=== PATIENT | female | born 2000 | race Two or more races ===

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

== ENCOUNTER 2023-05-31 08:08 | Outpatient (REF) | payer OTHER, SELFPAY ==
[2023-05-31 08:17] LABS: MANUAL DIFF FLAG NO
[2023-05-31 08:54] LABS: Basophils Percent Auto 0.4 % (0-2); Eosinophils Absolute Auto 0.3 X10*3/uL (0.0-0.4); Eosinophils Percent Auto 2.3 % (0-4); Hematocrit 39.3 % (37.0-47.0); Hemoglobin 12.1 g/dl (12.0-16.0); Imm Gran Abs Auto 0.05 X10*3/uL (0.00-0.03); Imm Gran Pct Auto 0.5 % (0.0-0.4); Lymphocytes Absolute Auto 4.4 X10*3/uL (1.2-4.9); Lymphocytes Percent Auto 39.4 % (20-40); Mean Corpuscular HGB Conc 30.8 g/dl (31.0-35.0); Mean Corpuscular Hemoglobin 23.8 pg (27.0-33.0); Mean Corpuscular Volume 77.4 fL (80.0-98.0); Mean Platelet Volume 9.2 fL (9.4-12.3); Monocytes Absolute Auto 0.7 X10*3/uL (0.1-1.2); Monocytes Percent Auto 6.4 % (2-11); Neutrophils Absolute Auto 5.7 x10*3/uL (2.0-8.3); Platelet Count 307 X10*3/uL (160-400); Red Blood Count 5.08 X10*6/uL (4.20-5.50); Red Cell Distribution Width 14.1 % (11.0-16.0); White Blood Count 11.1 X10*3/uL (4.8-10.8)
[2023-05-31 10:20] LABS: Alanine Aminotransferase 18 U/L (0-31); Albumin Level 4.1 g/dL (3.5-5.0); Alkaline Phosphatase 93 U/L (39-117); Anion Gap 11 (12-20); Aspartate Amino Transferase 14 U/L (5-31); Bilirubin Total 0.4 mg/dL (0.0-1.0); Blood Urea Nitrogen 10 mg/dL (9-16); Calcium 9.5 mg/dL (8.4-10.2); Carbon Dioxide 28 mmol/L (22-29); Chloride 106 mmol/L (96-108); Cholesterol 136 mg/dL; Estimated Glomerular Filt Rate > 60; Glucose Fasting 89 mg/dL (60-99); HDL Cholesterol 34 mg/dL; LDL Cholesterol Calculated 83 mg/dl; Potassium 3.8 mmol/L (3.3-5.1); Sodium 141 mmol/L (135-145); Total Protein 7.5 g/dL (6.5-8.0); Triglycerides 98 mg/dL
== END 2023-05-31 08:09 | disposition home or self-care (01) ==
LOC: HO.LAB 08:08
PROVIDERS: PCP Internal Medicine; Visit Provider Internal Medicine
DX: Z00.00 Encounter for general adult medical examination without abnormal findings (principal); L98.9 Disorder of the skin and subcutaneous tissue, unspecified
CPT/HCPCS: 36415; 80053; 80061; 85025

== ENCOUNTER 2023-06-11 15:09 | Outpatient (AMB) | payer OTHER, SELFPAY ==
--- NOTE | 2023-06-11 15:11 | A.OFFVIS_ITS ---
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 The patient is requesting STD screen No previous Pap smear done [facility] Medical History Acute allergic rhinitis Family history of hypertension FRED (generalized anxiety disorder) Minimal recurrent major depressive disorder Obese Skin lesion of breast Surgical History History of tonsillectomy Family History Father Dyslipidemia Mother No problems noted. Social History Housing: Apartment Alcohol intake: current Alcohol intake frequency: a few times a month Alcohol type: beer Patient Tobacco Use Status: Former Tobacco user Tobacco use type: Cigarette e-Cigarette/Vaping Use: Never Used Second Hand Smoke Exposure: No service: No Current occupational status: employed Current occupation: [employer] Sexual orientation: Straight/Heterosexual Gender identity: Female Cognitive needs: No Hearing needs: No Vision needs: No Female Reproductive History Menstrual Age of Menarche: 13 Duration of menses: 6-7 days Date of last menstrual period: 05/29/23 control method: progestin IUCD and condoms Total pregnancies: 0 Review of Systems Const All systems reviewed & are unremarkable except as noted in HPI and below Card Reports as per HPI Resp Reports as per HPI GI Reports as per HPI and Reports no additional complaints Reports as per HPI Physical Exam Const General: cooperative, healthy appearing and comfortable Chest Chest palpation & inspection: normal inspection of the chest and normal palpation of entire chest wall Breast/axilla inspection: normal inspection of the breasts and normal inspection of the axillae Breast/axilla palpation: normal palpation of the breasts, normal palpation of the axillae and no axillary lymphadenopathy Resp Effort & Inspection: normal respiratory effort Auscultation: clear to auscultation bilaterally Percussion: percussion normal Cardio Palpation: normal PMI Rate: regular rate Rhythm: regular rhythm Heart sounds: no murmurs and no rubs Peripheral pulses: Peripheral pulses 2+ throughout GI Inspection: Yes normal to inspection Palpation (GI): Soft to palpation, nontender, no guarding, not rigid and No hepatosplenomegaly present Percussion: Yes normal to percussion Auscultation: normal bowel sounds Rectal Exam - Female: deferred General: Yes bladder normal to palpation External Female Exam: No lesion Speculum Exam - Vagina: normal appearance of the vagina, normal palpation, normal vaginal discharge and not erythematous Speculum Exam - Cervix: normal appearance of the cervix and normal palpation Bimanual exam- vagina & uterus: normal bimanual exam, normal palpation, uterine size normal, bladder normal to palpation, consistency normal and normal palpation Bimanual Exam- Adnexa, other: normal adnexae, no masses and no tenderness Assessment & Plan Assessment & Plan (1) Well woman exam: Code(s): Z01.419 - Encounter for gynecological examination (general) (routine) without abnormal findings Plan: Pap smear done. Counseled the patient about the recommended dietary allowance of 1000 mg of Calcium & 600 IU of vitamin D. The patient was instructed to perform monthly self-breast exams and to schedule an annual exam in a year; All questions answered and the patient verbalized understanding. Instructed the patient to schedule annual exam in a year (2) Screen for STD (sexually transmitted disease): Code(s): Z11.3 - Encounter for screening for infections with a predominantly sexual mode of transmission Plan: STD screening tests done includes: BV panel for trichomonas, GC/CT will send patient for serology std screening for HIV, RPR, Hep b s Ag, HepC Ab. Instructions given the patient to schedule a follow-up appointment for repeat serology screen in 6 months for possible false negatives. (3) Vulvovaginitis: Code(s): N76.0 - Acute vaginitis Plan: GC/CT, Bacterial Vaginosis panel taken, Terazol 0.8% q.h.s. for 3 days with metronidazole 500 mg p.o. b.i.d. for 7 days was sent to the patient's pharmacy. Instructions given the patient to have unprotected intercourse for a week and to call if symptoms don't improve in 48 hours. Orders: Orders Hepatitis B Surface Antigen Today Z20.2 - Contact with and (suspected) exposure to infections with a predominantly sexual mode of transmission Hepatitis C Antibody Today Z20.2 - Contact with and (suspected) exposure to infections with a predominantly sexual mode of transmission HIV Ab/Ag Today Z20.2 - Contact with and (suspected) exposure to infections with a predominantly sexual mode of transmission Syphilis Screen Today Z20.2 - Contact with and (suspected) exposure to infections with a predominantly sexual mode of transmission Medications: New metronidazole 500 mg PO BID 14 tabs 0RF 7 days terconazole 0.8% 1 appful vaginal BEDTIME 20 grams 0RF 3 days Coding Level of Care Code Est Pt Prev Care 18-39y([id number]) Diagnoses Well woman exam Z01.419 Screen for STD (sexually transmitted disease) Z11.3 Vulvovaginitis N76.0
[2023-06-11 15:15] VITALS: BP 120/74; BMI 29.2
== END 2023-06-11 15:33 | disposition home or self-care (01) ==
LOC: HO.HWS 15:09
PROVIDERS: PCP Internal Medicine; Visit Provider Obstetrics & Gynecology
DX: Z01.419 Encounter for gynecological examination (general) (routine) without abnormal findings (principal); Z11.3 Encounter for screening for infections with a predominantly sexual mode of transmission; N76.0 Acute vaginitis
CPT/HCPCS: 99395

== ENCOUNTER 2023-06-11 15:09 | Outpatient (REF) | payer OTHER, SELFPAY ==
[2023-06-13 03:06] LABS: CT PCR NOT DETECTED (Not Detect.); NG PCR NOT DETECTED (Not Detect.)
[2023-06-13 09:36] LABS: BV Int Neg Control Negative (Negative); BV Int Pos Control Positive (Positive)
== END 2023-06-11 15:10 | disposition home or self-care (01) ==
LOC: HO.LNP 15:09
PROVIDERS: PCP Internal Medicine; Visit Provider Obstetrics & Gynecology
DX: Z01.419 Encounter for gynecological examination (general) (routine) without abnormal findings (principal); N76.0 Acute vaginitis
CPT/HCPCS: 0353U; 87480; 87510; 87660; 88142

== ENCOUNTER 2023-12-02 08:07 | Outpatient (REF) | payer OTHER, SELFPAY ==
[2023-12-02 11:21] LABS: Appearance Urine Clear; Color Urine Yellow; Glucose Urine UA Negative (Negative); Leukocyte Esterase Urine Negative (Negative); Nitrite Urine Negative (Negative); Specific Gravity - Urine 1.025 (1.005-1.025); UMIC TRIGGER UACC YES; Urine Blood Trace (Negative); Urine Ketones Negative (Negative); Urine Protein Negative (Neg-Trace)
[2023-12-02 11:25] LABS: Bacteria Urine Trace (None Seen); Hyaline Casts Urine 0-2 /LPF (0-2); RBC Urine 0-2 /HPF (0-2); WBC Urine 0-5 /HPF (0-5)
== END 2023-12-02 08:08 | disposition home or self-care (01) ==
LOC: HO.LAB 08:07
PROVIDERS: PCP Internal Medicine; Visit Provider Internal Medicine
DX: R39.9 Unspecified symptoms and signs involving the genitourinary system (principal)
CPT/HCPCS: 81001

== ENCOUNTER 2024-02-10 14:57 | Outpatient (AMB) | payer OTHER, SELFPAY ==
--- NOTE | 2024-02-10 15:19 | MHC.OFFVIS ---
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 Luciano. She has a past medical history of anxiety, depression, allergic rhinitis, and obesity. She presents to the office today as a new patient for ongoing lower urinary tract symptoms. In discussion with the patient today she reports noting over the last 6 months to be experiencing urinary urgency, urinary frequency, and bladder pressure. She otherwise denies incontinence, nocturia, hematuria, dysuria, foul smelling urine, changes to urinary stream, flank pain, fever, and or chills. In office urinalysis results reviewed with the patient today. Microscopic hematuria noted otherwise within normal limits. When asked she denies any previous history of smoking and or known chemical exposure. Discussed at length potential causes for microscopic hematuria. Discussed at length potential causes for lower urinary tract symptoms she is experiencing. She otherwise offers no other issues or concerns at this time. [facility] Medical History FRED (generalized anxiety disorder) Minimal recurrent major depressive disorder Family history of hypertension Skin lesion of breast Acute allergic rhinitis Obese Surgical History History of tonsillectomy Family History Father Dyslipidemia Mother No problems noted. Social History Housing: Apartment Alcohol intake: current Alcohol intake frequency: a few times a month Alcohol type: beer Patient Tobacco Use Status: Former Tobacco user Tobacco use type: Cigarette e-Cigarette/Vaping Use: Never Used Second Hand Smoke Exposure: No service: No Current occupational status: employed Current occupation: [employer] Sexual orientation: Straight/Heterosexual Gender identity: Female Cognitive needs: No Hearing needs: No Vision needs: No Female Reproductive History Menstrual Age of Menarche: 13 Review of Systems Const All systems reviewed & are unremarkable except as noted in HPI and below Physical Exam Const General: cooperative, healthy appearing, comfortable, no acute distress, well developed, alert and awake Orientation/consciousness: patient oriented x3 Limitations: no limitations HEENT Head: Yes normal to inspection, Yes normocephalic and Yes atraumatic Ears: hearing grossly normal bilaterally Eyes General: appearance normal, both eyes and all related structures Neck Neck: Yes normal visual inspection and Yes trachea midline Chest Chest palpation & inspection: normal inspection of the chest Resp Effort & Inspection: normal respiratory effort and able to speak in complete sentences Cardio Rate: regular rate GI Inspection: Yes normal to inspection General: Yes no CVA tenderness Back/Spine/Pelvis Back: no CVA tenderness Skin General skin exam: no rashes or lesions noted Neuro General: patient oriented x3 Extrem General: Yes normal to inspection Psych Appearance: grossly normal and well kempt Mental Status: mental status grossly normal Speech and movement: Normal speech and movement present and Clear speech present Affect: normal affect Attitude: cooperative Thought process: Normal thought process present Thought content: Normal thought content present Insight: Fair insight present (Psych) Judgement: Fair judgement present (Psych) Results AMB Urinalysis, Automated UA Leukoctes 0 Theresa/uL Last Edit by Tiarra Sarmiento [facility] on 02/10/24 15:39 UA Nitrite Negative Last Edit by Tiarra Sarmiento CMA on 02/10/24 15:39 UA Urobilinogen 0.2 mg/dL Last Edit by Tiarra Sarmiento [facility] on 02/10/24 15:39 UA Protein 0 mg/dL Last Edit by Tiarra Sarmiento [facility] on 02/10/24 15:39 UA pH 6.0 Last Edit by Tiarra Sarmiento CMA on 02/10/24 15:39 UA Blood 10 Mark/uL Last Edit by Tiarra Sarmiento [facility] on 02/10/24 15:39 UA Specific [place] 1.030 Last Edit by Tiarra Sarmiento REFRIGERATION MECHANIC on 02/10/24 15:39 UA Ketone Positive Last Edit by Tiarra Sarmiento [facility] on 02/10/24 15:39 5 mg/dl Tiarrajose Sarmiento 02/10/24 15:39 UA Bilirubin 0 mg/dL Last Edit by Tiarra Sarmiento CMA on 02/10/24 15:39 UA Glucose 0 mg/dL Last Edit by Tiarra Sarmiento CMA on 02/10/24 15:39 Results Reviewed Results Reviewed: Laboratory Last Values Urine pH (Auto) 6.0 02/10/24 15:23 Specific [place] (Auto) 1.030 02/10/24 15:23 Urine Protein (Auto) 0 mg/dL 02/10/24 15:23 Glucose (UA)(Auto) 0 mg/dL 02/10/24 15:23 Urine Ketones (Auto) Positive 02/10/24 15:23 Urine Blood (Auto) 10 Mark/uL 02/10/24 15:23 Urine Nitrite (Auto) Negative 02/10/24 15:23 Urine Bilirubin (Auto) 0 mg/dL 02/10/24 15:23 Urine Urobilinogen (Auto) 0.2 mg/dL 02/10/24 15:23 Leukocyte Esterase (Auto) 0 Theresa/uL 02/10/24 15:23 Assessment & Plan Assessment & Plan (1) Microscopic hematuria: Code(s): R31.29 - Other microscopic hematuria (2) Urinary frequency: Code(s): R35.0 - Frequency of micturition (3) Urinary urgency: Code(s): R39.15 - Urgency of urination (4) Sensation of pressure in bladder area: Code(s): R39.89 - Other symptoms and signs involving the genitourinary system Plan In office urinalysis results reviewed with the patient today; as noted above; will send for urine cytology. Discussed obtaining retroperitoneal ultrasound for further assessment evaluation. Discussed bladder triggers/irritants. Discussed at length potential causes for lower urinary tract symptoms patient is experiencing. Discussed, educated, and stressed the importance of drinking plenty of water daily. Discussed pelvic floor therapy versus surveillance monitoring verses trial of medication to assist with lower urinary tract symptoms patient is experiencing; risks and benefits of these interventions were discussed at length. Discussed possible near future in office urodynamics and or cystoscopy for further assessment evaluation. Follow up in 4-8 weeks with imaging to be completed prior and PVR at next office visit; or sooner with any issues, concerns, and or questions. Orders: Orders AMB Urinalysis Automated Today R33.9 - Retention of urine, unspecified Urine Cytology Today R31.29 - Other microscopic hematuria US retroperitoneal comp Today R35.0 - Frequency of micturition, R39.15 - Urgency of urination, R39.89 - Other symptoms and signs involving the genitourinary system Medications: New tamsulosin 0.4 mg PO BEDTIME 30 caps 3RF 30 days N40.1 - Benign prostatic hyperplasia with lower urinary tract symptoms, R35.1 - Nocturia Patient Instructions: The patient had an opportunity to ask questions regarding the treatment plan. All questions were answered. Physical exam, labs, and imaging were discussed and reviewed in detail. As well as risks, benefits, and discussion of treatment choices. No major barriers to understanding were identified. The patient expressed understanding and agreement with the above treatment plan. The patient was made aware they should contact our office by phone for worsening of their current condition, the appearance of new symptoms, or with any questions or concerns. Compliance is encouraged with any medications and follow up testing that is ordered. It is a privilege to be allowed the opportunity to participate in? your urological care.? Again, if you have any questions or concerns If you have any questions or concerns please do not hesitate to contact me. The office is [phone]. This note is constructed using voice recognition software. While every effort has been made to ensure accuracy floral design teacher errors may have been included. Yours sincerely, YOUSIF Max Coding Level of Care Code New Pt Level 4 (50244) Diagnoses Microscopic hematuria R31.29 Urinary frequency R35.0 Urinary urgency R39.15 Sensation of pressure in bladder area R39.89
== END 2024-02-10 15:57 | disposition home or self-care (01) ==
PROVIDERS: PCP Internal Medicine; Visit Provider Nurse Practitioner Family
DX: R31.29 Other microscopic hematuria (principal); R35.0 Frequency of micturition; R39.15 Urgency of urination; R39.89 Other symptoms and signs involving the genitourinary system; R33.9 Retention of urine, unspecified
CPT/HCPCS: 99204

== ENCOUNTER 2024-02-10 14:57 | Outpatient (REF) | payer OTHER, SELFPAY ==
[2024-02-10 18:37] LABS: Urine Cytology See Pathology rpt
== END 2024-02-10 14:58 | disposition home or self-care (01) ==
LOC: HO.LAB 14:57
PROVIDERS: PCP Internal Medicine; Visit Provider Nurse Practitioner Family
DX: R31.29 Other microscopic hematuria (principal); R31.9 Hematuria, unspecified; R35.0 Frequency of micturition; R39.15 Urgency of urination; R39.89 Other symptoms and signs involving the genitourinary system; R33.9 Retention of urine, unspecified; R35.1 Nocturia
CPT/HCPCS: 81003; 88112; 99202

== ENCOUNTER 2024-04-29 10:07 | Outpatient (REF) | payer OTHER, SELFPAY ==
--- NOTE | ~2024-04-29 | US_ITS ---
EXAMINATION: US RETROPERITONEAL COMPLETE (RENAL) CLINICAL INFORMATION: Other symptoms and signs involving the genitourinary system. COMPARISON: None available. TECHNIQUE: Real-time imaging of the kidneys and bladder. FINDINGS: RIGHT KIDNEY: 11.0 x 3.6 x 5.3 cm (SAG x AP x TRV). The kidney is normal in size, contour, and echogenicity. Renal cortical thickness is normal. No calculi or focal parenchymal lesions. No hydronephrosis. LEFT KIDNEY: 11.4 x 5.0 x 5.4 cm (SAG x AP x TRV). The kidney is normal in size, contour, and echogenicity. Renal cortical thickness is normal. No calculi or focal parenchymal lesions. No hydronephrosis. BLADDER: Well distended and normal. Bilateral ureteral jets are demonstrated. Prevoid bladder volume is 480 mL. Postvoid bladder volume is 27 mL. US/US retroperitoneal comp IMPRESSION: Unremarkable examination.
== END 2024-04-29 10:08 | disposition home or self-care (01) ==
LOC: HO.US 10:07
PROVIDERS: PCP Internal Medicine; Visit Provider Nurse Practitioner Family
DX: R39.89 Other symptoms and signs involving the genitourinary system (principal); R39.15 Urgency of urination; R35.0 Frequency of micturition
CPT/HCPCS: 76770

== ENCOUNTER 2024-05-10 17:19 | Outpatient (AMB) | payer OTHER, SELFPAY ==
[2024-05-10 17:27] VITALS: BP 102/70; PULSE 87; O2SAT 98; BMI 28.7
--- NOTE | 2024-05-10 17:27 | MHC.PC.OV ---
Vital Signs 05/10/24 17:27 Height 5 ft 4 in Weight 167 lb BMI 28.7 BP 102/70 Blood Pressure Location Lt brachial Position Sitting Pulse 87 Pulse Source Pulse Oximeter Pulse Oximetry (%) 98 Oxygen Delivery Method Room Air Intake Visit Reasons: pe Intake Note: Patient is here today for a physical. Recooperer Required: No Accompanied by: Self / Same As Patient Is last menstrual period known: Yes Last menstrual period: 04/29/24 Allergies No Known Allergies Allergy (Verified 05/10/24 17:46) Medication List - Last Reconciled 05/10/24 by Laquita Olea MD levonorgestrel (Mirena) intrauterine Tobacco use date assessed: 05/10/24 Dental Screening Dental Screen Date: 05/10/24 Did you have a dental visit in the last 12 months?: Yes Did you have a dental problem in the last 6 months where you did not have access to dental care?: No Was dental information given to patient?: Patient has dentist HPI HPI Comments History of Present Illness Details This is a 24-year-old female that comes for her physical exam. Pap smear done 2022 and was normal. No chest pain or shortness on breath. Complains of constipation with less than 3 bowel movements per week and I will send senna. [facility] Medical History (Updated 05/10/24 @ 17:58 by Laquita Olea MD) FRED (generalized anxiety disorder) Minimal recurrent major depressive disorder Family history of hypertension Skin lesion of breast Acute allergic rhinitis Obese Surgical History (Updated 05/10/24 @ 17:48 by Laquita Olea MD) H/O rhinoplasty History of tonsillectomy Family History (Updated 05/10/24 @ 17:52 by Laquita Olea MD) Father Gout Mother No problems noted. Social History Housing: Apartment Alcohol intake: current Alcohol intake frequency: a few times a month Alcohol type: beer Patient Tobacco Use Status: Former Tobacco user Tobacco use type: Cigarette e-Cigarette/Vaping Use: Never Used Second Hand Smoke Exposure: No service: No Current occupational status: employed Current occupation: [employer] Sexual orientation: Straight/Heterosexual Gender identity: Female Cognitive needs: No Hearing needs: No Vision needs: No Female Reproductive History Menstrual Age of Menarche: 13 Date of last menstrual period: 04/29/24 Questionnaire PHQ-9 Over the last 2 weeks, how often have you been bothered by any of the following problems? 1. Little interest or pleasure in doing things: not at all 2. Feeling down, depressed, or hopeless: not at all 3. Trouble falling or staying asleep, or sleeping too much: not at all 4. Feeling tired or having little energy: not at all 5. Poor appetite or overeating: not at all 6. Feeling bad about yourself - or that you are a failure or have let yourself or your family down: not at all 7. Trouble concentrating on things, such as reading the newspaper or watching television: not at all 8. Moving or speaking so slowly that other people could have noticed. Or the opposite - being so fidgety or restless that you have been moving around a lot more than usual: not at all 9. Thoughts that you would be better off or of hurting yourself in some way: not at all Total score: 0 Depression Screening Interpretation: Negative Depression Screening Done: Yes 46874 - PHQ-9 Billing: Yes Source: Developed by Drs. Yohan Myers, Marilyn Turcios, Sotero Smith and colleagues, with an educational nataly from [employer]. Thrive Questionnaire Date Thrive assessed: 05/10/24 I am a: Patient What is your living situation today?: I have a steady place to live Within the past 12 months, did the food you bought not last and you didn't have the money to get more?: Never true Within the past 12 months, did you worry whether your food would run out before you got money to buy more?: Never true Do you have trouble paying for medicines?: No Do you have trouble getting transportation to medical appointments?: No Do you have trouble paying your heating and electricity bill?: No Do you have trouble taking care of your child, family member or friend?: No Do you have trouble with day-to-day activities such as bathing, preparing meals, shopping, managing finances, etc.?: No Are you currently unemployed and looking for a job?: No Are you interested in more education?: No Please select the resources that you would like help with: None Currently or been in a relationship where the following occur: No concerns reported THRIVE Score: 0 AUDIT C Alcohol Use Questionnaire (AUDIT-C) 1. How often do you have a drink containing alcohol?: 2-4 times a month 2. How many drinks containing alcohol do you have on a typical day when you are drinking?: 1 or 2 3. How often do you have six or more drinks on one occasion?: Never Total Score: 2 Score Reviewed/Action Taken: No FRED-7 AMB Questionnaire FRED-7 Date FRED - 7 assessed: 05/10/24 Feeling nervous, anxious, or on edge: 0 = Not at all Not being able to stop or control worryin = Not at all Worrying too much about different things: 0 = Not at all Trouble relaxin = Not at all Being so restless that it is hard to sit still: 0 = Not at all Becoming easily annoyed or irritable: 0 = Not at all Feeling afraid as if something awful might happen: 0 = Not at all Total FRED-7 score (0-4 normal; 5-9 mild; 10-14 moderate; 15-21 severe): 0 Source: Developed by Drs. Yohan Myers, Marilyn Turcios, Sotero Smith and colleagues, with an educational nataly from [employer]. FRED-7 Assessment Billing FRED-7 Assessment Tool: FRED-7 Assessment 51054 Review of Systems Const All systems reviewed & are unremarkable except as noted in HPI and below Card Denies chest pain at rest, Denies chest pain with activity, Denies edema, Denies irregular heart rhythm, Denies claudication, Denies dyspnea, Denies dyspnea on exertion, Denies orthopnea, Denies paroxysmal nocturnal dyspnea and Denies slow heart rate Resp Denies cough, Denies dyspnea and Denies dyspnea on exertion GI Denies abdominal pain, Denies change in bowel habits, Reports constipation, Denies excessive flatus, Denies nausea and Denies vomiting Denies urinary incontinence, Denies urinary hesitancy and Denies urinary urgency Musc Denies abnormal gait, Denies atrophy, Denies deformity and Denies limited range of motion Neuro Denies abnormal gait, Denies behavioral changes, Denies confusion and Denies lack of coordination Psych Denies behavioral changes and Denies confusion Physical exam (Primary Care) Vital Signs: Last Vital Signs Pulse 87 05/10/24 17:27 BP 102/70 05/10/24 17:27 Pulse Ox 98 05/10/24 17:27 Oxygen Delivery Method Room Air 05/10/24 17:27 BMI result Body Mass Index 28.7 Tobacco/Smoking Status: Tobacco use Status Tobacco use date assessed 05/10/24 05/10/24 17:35 Patient Tobacco Use Status Former Tobacco user 05/10/24 17:28 Tobacco use type Cigarette 05/10/24 17:28 e-Cigarette/Vaping Use Never Used 05/10/24 17:28 PHQ-9: PHQ-9 Score PHQ-9: Total score 0 05/10/24 17:35 Depression Screening Interpretation: Negative Thrive Assessment: Date of Thrive Assessment Date Thrive assessed 05/10/24 05/10/24 17:35 Currently or been in a relationship where the following occur: No concerns reported Const General: No confusion Orientation/consciousness: patient oriented x3 and No confusion HENMT Head: Yes normal to inspection, Yes normocephalic and Yes atraumatic Ears: external ears normal Eyes General: appearance normal, both eyes and all related structures Eyelids: Yes eyelids normal Conjunctivae: conjunctivae normal Neck Neck: Yes normal visual inspection and Yes supple Resp Effort & Inspection: normal respiratory effort Auscultation: clear to auscultation bilaterally Cardio Jugular venous distension: no JVD Rate: regular rate Rhythm: regular rhythm Heart sounds: S1 normal heart sound present and S2 normal heart sound present GI Inspection: Yes normal to inspection Palpation (GI): Soft to palpation and nontender Auscultation: normal bowel sounds Skin General skin exam: no rashes or lesions noted Neuro General: patient oriented x3, no focal motor deficits and No confusion Extrem General: Yes full ROM Psych Appearance: grossly normal Assessment and Plan Assessment & Plan (1) Physical exam: Code(s): Z00.00 - Encounter for general adult medical examination without abnormal findings Plan: Repeat in a year. (2) Chronic idiopathic constipation: Code(s): K59.04 - Chronic idiopathic constipation Plan: Start senna as needed. Medications: New sennosides (senna) 8.6 mg PO BEDTIME 30 days PRN 30 tabs 1RF constipation K59.04 - Chronic idiopathic constipation Coding Level of Care Code Est Pt Level 3 (14515) Est Pt Prev Care 18-39y(71086) Diagnoses Physical exam Z00.00 Chronic idiopathic constipation K59.04 Additional Codes FRED-7 Assessment Billing - FRED-7 Assessment Tool: FRED-7 Assessment 80966 ([id number]) Time Spent (min) 33
== END 2024-05-10 17:53 | disposition home or self-care (01) ==
PROVIDERS: PCP Internal Medicine; Visit Provider Internal Medicine
DX: Z00.00 Encounter for general adult medical examination without abnormal findings (principal); K59.04 Chronic idiopathic constipation
CPT/HCPCS: 99213; 99395

== ENCOUNTER 2024-05-11 14:28 | Outpatient (AMB) | payer OTHER, SELFPAY ==
--- NOTE | 2024-05-11 14:38 | MHC.OFFVIS ---
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 Luciano. She has a past medical history of anxiety, depression, allergic rhinitis, and obesity. She presents to the office today for follow-up. Of note, patient was seen approximately 3 months ago as a new patient for ongoing lower urinary tract symptoms at which time a retroperitoneal ultrasound was ordered for further assessment evaluation. These results were reviewed with the patient today. Bilateral kidneys with no calculi, lesions, and or hydronephrosis. The bladder is well distended and normal. Bladder ureteral jets are demonstrated. Pre void bladder volume is approximately 480 mL. Postvoid bladder volume is approximately 30 mL. Unremarkable examination. She discusses continuing to feel ongoing lower urinary tract symptoms of urinary urgency, urinary frequency, and at times bladder pressure. She reports her upcoming [place] within the next few weeks. Discussed further treatment options for lower urinary tract symptoms patient is experiencing with pelvic floor therapy verses trial of low-dose oxybutynin or VESIcare. Discussed and stressed the importance of limiting bladder triggers/irritants. In office urinalysis results reviewed with the patient today. She otherwise denies incontinence, nocturia, hematuria, dysuria, foul smelling urine, changes to urinary stream, flank pain, fever, and or chills. Discussed at length potential causes for lower urinary tract symptoms she is experiencing. When asked she does report a history of constipation. Discussed correlation of bowel issues with lower urinary tract symptoms. She otherwise offers no other issues or concerns at this time. [facility] Medical History FRED (generalized anxiety disorder) Minimal recurrent major depressive disorder Family history of hypertension Skin lesion of breast Acute allergic rhinitis Obese Surgical History (Updated 05/10/24 @ 17:48 by Laquita Olea MD) H/O rhinoplasty History of tonsillectomy Family History (Updated 05/10/24 @ 17:52 by Laquita Olea MD) Father Gout Mother No problems noted. Social History Housing: Apartment Alcohol intake: current Alcohol intake frequency: a few times a month Alcohol type: beer Patient Tobacco Use Status: Former Tobacco user Tobacco use type: Cigarette e-Cigarette/Vaping Use: Never Used Second Hand Smoke Exposure: No service: No Current occupational status: employed Current occupation: [employer] Sexual orientation: Straight/Heterosexual Gender identity: Female Cognitive needs: No Hearing needs: No Vision needs: No Female Reproductive History Menstrual Age of Menarche: 13 Review of Systems Const All systems reviewed & are unremarkable except as noted in HPI and below Physical Exam Const General: cooperative, healthy appearing, comfortable, no acute distress, well developed, alert and awake Orientation/consciousness: patient oriented x3 Limitations: no limitations HEENT Head: Yes normal to inspection, Yes normocephalic and Yes atraumatic Ears: hearing grossly normal bilaterally Eyes General: appearance normal, both eyes and all related structures Neck Neck: Yes normal visual inspection and Yes trachea midline Chest Chest palpation & inspection: normal inspection of the chest Resp Effort & Inspection: normal respiratory effort and able to speak in complete sentences Cardio Rate: regular rate GI Inspection: Yes normal to inspection General: Yes no CVA tenderness Back/Spine/Pelvis Back: no CVA tenderness Skin General skin exam: no rashes or lesions noted Neuro General: patient oriented x3 Extrem General: Yes normal to inspection Psych Appearance: grossly normal and well kempt Mental Status: mental status grossly normal Speech and movement: Normal speech and movement present and Clear speech present Affect: normal affect Attitude: cooperative Thought process: Normal thought process present Thought content: Normal thought content present Insight: Fair insight present (Psych) Judgement: Fair judgement present (Psych) Results AMB Urinalysis, Automated UA Leukoctes 0 Theresa/uL Last Edit by Cortney Nielsen CMA on 05/11/24 14:40 UA Nitrite Negative Last Edit by Cortney Nielsen CMA on 05/11/24 14:40 UA Urobilinogen 0.2 mg/dL Last Edit by Cortney Nielsen CMA on 05/11/24 14:40 UA Protein 15 mg/dL Last Edit by Cortney Nielsen CMA on 05/11/24 14:40 UA pH 6.0 Last Edit by Cortney Nielsen, MCKINLEY on 05/11/24 14:40 UA Blood 0 Mark/uL Last Edit by Cortney Nielsen, MCKINLEY on 05/11/24 14:40 UA Specific [place] 1.030 Last Edit by Cortney Nielsen, MCKINLEY on 05/11/24 14:40 UA Ketone Negative Last Edit by Cortney Nielsen, MCKINLEY on 05/11/24 14:40 UA Bilirubin 0 mg/dL Last Edit by Cortney Nielsen, MCKINLEY on 05/11/24 14:40 UA Glucose 0 mg/dL Last Edit by Cortney Nielsen CMA on 05/11/24 14:40 Results Reviewed Results Reviewed: Laboratory Last Values Urine pH (Auto) 6.0 05/11/24 14:33 Specific [place] (Auto) 1.030 05/11/24 14:33 Urine Protein (Auto) 15 mg/dL 05/11/24 14:33 Glucose (UA)(Auto) 0 mg/dL 05/11/24 14:33 Urine Ketones (Auto) Negative 05/11/24 14:33 Urine Blood (Auto) 0 Mark/uL 05/11/24 14:33 Urine Nitrite (Auto) Negative 05/11/24 14:33 Urine Bilirubin (Auto) 0 mg/dL 05/11/24 14:33 Urine Urobilinogen (Auto) 0.2 mg/dL 05/11/24 14:33 Leukocyte Esterase (Auto) 0 Theresa/uL 05/11/24 14:33 Date of Service: 04/29/24 FINDINGS: RIGHT KIDNEY: 11.0 x 3.6 x 5.3 cm (SAG x AP x TRV). The kidney is normal in size, contour, and echogenicity. Renal cortical thickness is normal. No calculi or focal parenchymal lesions. No hydronephrosis. LEFT KIDNEY: 11.4 x 5.0 x 5.4 cm (SAG x AP x TRV). The kidney is normal in size, contour, and echogenicity. Renal cortical thickness is normal. No calculi or focal parenchymal lesions. No hydronephrosis. BLADDER: Well distended and normal. Bilateral ureteral jets are demonstrated. Prevoid bladder volume is 480 mL. Postvoid bladder volume is 27 mL. IMPRESSION: Unremarkable examination. Assessment & Plan Assessment & Plan (1) Urinary frequency: Code(s): R35.0 - Frequency of micturition Category: Medical (2) Urinary urgency: Code(s): R39.15 - Urgency of urination Category: Medical (3) Sensation of pressure in bladder area: Code(s): R39.89 - Other symptoms and signs involving the genitourinary system Category: Medical Plan In office urinalysis results reviewed with the patient today; as noted above. Recent retroperitoneal ultrasound results reviewed with the patient today; as noted above. Information provided for pelvic floor exercises. Discussed bladder triggers/irritants. Discussed at length potential causes for lower urinary tract symptoms patient is experiencing. Discussed, educated, and stressed the importance of drinking plenty of water daily. Discussed pelvic floor therapy versus surveillance monitoring verses trial of medication to assist with lower urinary tract symptoms patient is experiencing; risks and benefits of these interventions were discussed at length. Discussed obtaining bladder diary. Discussed possible near future in office urodynamics and or cystoscopy for further assessment evaluation. Follow up in 3 months with [facility]; or sooner with any issues, concerns, and or questions. Orders: Orders AMB Urinalysis Automated 05/11/24 Z13.9 - Encounter for screening, unspecified Patient Instructions: The patient had an opportunity to ask questions regarding the treatment plan. All questions were answered. Physical exam, labs, and imaging were discussed and reviewed in detail. As well as risks, benefits, and discussion of treatment choices. No major barriers to understanding were identified. The patient expressed understanding and agreement with the above treatment plan. The patient was made aware they should contact our office by phone for worsening of their current condition, the appearance of new symptoms, or with any questions or concerns. Compliance is encouraged with any medications and follow up testing that is ordered. It is a privilege to be allowed the opportunity to participate in? your urological care.? Again, if you have any questions or concerns If you have any questions or concerns please do not hesitate to contact me. The office is [phone]. This note is constructed using voice recognition software. While every effort has been made to ensure accuracy relay operator errors may have been included. Yours sincerely, YOUSIF Max Coding Level of Care Code Est Pt Level 3 (20601) Diagnoses Urinary frequency R35.0 Urinary urgency R39.15 Sensation of pressure in bladder area R39.89
== END 2024-05-11 15:08 | disposition home or self-care (01) ==
PROVIDERS: PCP Internal Medicine; Visit Provider Nurse Practitioner Family
DX: R35.0 Frequency of micturition (principal); R39.15 Urgency of urination; R39.89 Other symptoms and signs involving the genitourinary system
CPT/HCPCS: 99213

== ENCOUNTER → 2024-05-11 14:28 | Outpatient (BNVA) | payer OTHER, SELFPAY | PROVIDERS: PCP Internal Medicine; Visit Provider Nurse Practitioner Family | DX: R35.0 Frequency of micturition (principal); R39.15 Urgency of urination; R39.89 Other symptoms and signs involving the genitourinary system | CPT/HCPCS: 81003; 99212 ==

== ENCOUNTER 2025-05-04 13:30 | Outpatient (AMB) | payer OTHER, SELFPAY ==
--- NOTE | 2025-05-04 14:09 | MHC.OFFVIS ---
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 Complaining of vaginal discharge associated with foul odor and no vulvovaginal itching. Last Pap smear was negative in 07/02 [facility] Medical History FRED (generalized anxiety disorder) Minimal recurrent major depressive disorder Family history of hypertension Skin lesion of breast Acute allergic rhinitis Obese Surgical History H/O rhinoplasty History of tonsillectomy Family History Father Gout Mother No problems noted. Social History Housing: Apartment Alcohol intake: current Alcohol intake frequency: a few times a month Alcohol type: beer Patient Tobacco Use Status: Former Tobacco user Tobacco use type: Cigarette e-Cigarette/Vaping Use: Never Used Second Hand Smoke Exposure: No Patient : No service: No Current occupational status: employed Current occupation: [employer] Sexual orientation: Straight/Heterosexual Gender identity: Female Cognitive needs: No Hearing needs: No Vision needs: No Female Reproductive History Menstrual Age of Menarche: 13 Date of last menstrual period: 04/06/25 control method: progestin IUCD (Mirena ) Total pregnancies: 0 Date of last pap smear: 06/11/23 (negative pap smear ) Review of Systems Const All systems reviewed & are unremarkable except as noted in HPI and below Card Reports as per HPI Resp Reports as per HPI GI Reports as per HPI and Reports no additional complaints Reports as per HPI Physical Exam Vital Signs: Last Vital Signs BP 104/70 05/04/25 14:12 BMI result Body Mass Index 22.7 Const General: cooperative, healthy appearing and comfortable Chest Chest palpation & inspection: normal inspection of the chest and normal palpation of entire chest wall Breast/axilla inspection: normal inspection of the breasts and normal inspection of the axillae Breast/axilla palpation: normal palpation of the breasts, normal palpation of the axillae and no axillary lymphadenopathy Resp Effort & Inspection: normal respiratory effort Auscultation: clear to auscultation bilaterally Percussion: percussion normal Cardio Palpation: normal PMI Rate: regular rate Rhythm: regular rhythm Heart sounds: no murmurs and no rubs Peripheral pulses: Peripheral pulses 2+ throughout GI Inspection: Yes normal to inspection Palpation (GI): Soft to palpation, nontender, no guarding, not rigid and No hepatosplenomegaly present Percussion: Yes normal to percussion Auscultation: normal bowel sounds Rectal Exam - Female: deferred General: Yes bladder normal to palpation External Female Exam: No lesion Speculum Exam - Vagina: normal appearance of the vagina, normal palpation, normal vaginal discharge and not erythematous Speculum Exam - Cervix: normal appearance of the cervix and normal palpation Bimanual exam- vagina & uterus: normal bimanual exam, normal palpation, uterine size normal, bladder normal to palpation, consistency normal and normal palpation Bimanual Exam- Adnexa, other: normal adnexae, no masses and no tenderness Assessment & Plan Assessment & Plan (1) Well woman exam: Code(s): Z01.419 - Encounter for gynecological examination (general) (routine) without abnormal findings Category: Medical Plan: Pap smear not indicated this year. Counseled the patient about the recommended dietary allowance of 1000 mg of Calcium & 600 IU of vitamin D. The patient was instructed to perform monthly self-breast exams and to schedule an annual exam in a year; All questions answered and the patient verbalized understanding. Instructed the patient to schedule annual exam in a year (2) Vulvovaginitis: Code(s): N76.0 - Acute vaginitis Category: Medical Plan: Urine dip done in the office was negative. GC and chlamydia cultures with BV panel taken. Per CDC recommendation, will screen for STI, HepBs Ag, HIV, RPR, Hep C Ab ordered. Will treat with Flagyl 500 mg p.o. b.i.d. x 7 days, Instructions given to the patient to refrain from sexual activity or to use condoms consistently and correctly during the BV treatment regimen, not to douch, it might increase the risk for relapse, and to call if symptoms persist or recur. Orders: Orders Syphilis Screen Today B96.89 - Other specified bacterial agents as the cause of diseases classified elsewhere, N76.0 - Acute vaginitis Hepatitis C Antibody Today B96.89 - Other specified bacterial agents as the cause of diseases classified elsewhere, N76.0 - Acute vaginitis Hepatitis B Surface Antigen Today B96.89 - Other specified bacterial agents as the cause of diseases classified elsewhere, N76.0 - Acute vaginitis HIV Ab/Ag Today B96.89 - Other specified bacterial agents as the cause of diseases classified elsewhere, N76.0 - Acute vaginitis Medications: New metronidazole 500 mg PO BID 14 tabs 0RF 7 days Coding Level of Care Code Est Pt Prev Care 18-39y(02436) Diagnoses Well woman exam Z01.419 Vulvovaginitis N76.0
[2025-05-04 14:12] VITALS: BP 104/70; BMI 22.7
== END 2025-05-04 14:31 | disposition home or self-care (01) ==
LOC: HO.HWS 13:30
PROVIDERS: PCP Internal Medicine; Visit Provider Obstetrics & Gynecology
DX: Z01.419 Encounter for gynecological examination (general) (routine) without abnormal findings (principal); N76.0 Acute vaginitis
CPT/HCPCS: 99395; 99459

== ENCOUNTER 2025-05-04 13:30 | Outpatient (REF) | payer OTHER, SELFPAY ==
--- OUTSIDE RECORDS SUMMARY | 2025-05-04 17:23 | XMS_ITS | Clinical Summary ---
Author Organization [employer] Address [address] [place] [address] [address] [place] [address] Care Team Providers Care Practice Representative Name Role Phone Unavailable Primary Care Provider Unavailabl e Social History Tobacco Use Types Packs/Day Years Used Date Smoking Tobacco: Never Assessed Comments Unknown Sex and Gender Information Value Date Recorded Sex Assigned at Female 09/09/2022 10:37 AM EDT Legal Sex Female 10:37 AM EDT Gender Identity Choose not to disclose 10:37 AM EDT Sexual Orientation Choose not to disclose 2021 10:37 AM EDT Plan of Treatment Health Maintenance Due Date Last Done Comments Chlamydia and Gonorrhea Screening 2002 Depression Screening 2002 Disability Screening 2002 Alcohol/Substance Use Screening 2014 Tobacco Screening 2014 Family Planning (PISQ) 2017 HPV Vaccines (1 - 3-dose series) 2017 Meningococcal B Vaccine (1 o f 2 - Standard) 2018 DTaP/Tdap/Td Vaccines (1 - Tdap) 2021 Hepatitis B Vaccines (1 of 3 - 19+ 3-dose series) 2021 Pap Smear 2023 COVID-19 Vaccine ( - 2023-2 5 season) 2024 Influenza Vaccine (Season Ended) 2025 Zoster Vaccines (1 of 2) 2052 RSV Patients and Pa tients Aged 60 years or older (1 - 1-dose 75+ series) 2077 HIB Vaccines Aged Out No longer eligi ble based on patient's age to complete this topic Hepatitis A Vaccines Aged Out No long er eligible based on patient's age to complete this topic IPV Vaccines Aged Out No longer eligi ble based on patient's age to complete this topic Meningococcal Vaccine Aged Out No aayush [place] eligible based on patient's age to complete this topic Pneumococcal Vaccine: Pediat rics (0 to 5 Years) and At-Risk Patients (6 to 49) Years Aged Out No longer eligible b ased on patient's age to complete this topic RSV under 20 months Aged Out No longe r eligible based on patient's age to complete this topic Rotavirus Vaccines Aged Out No longer eligible based on patient's age to complete this topic
[2025-05-05 08:06] LABS: HBsAGNum1 0.37 S/CO (0.00-0.99); HIV AB/AG Nonreactive (Nonreactive); Hepatitis B Surface Antigen Negative (Negative); ~HepC Num1 0.24 S/CO (0.00-0.79); ~Hepatitis C Antibody Nonreactive (Nonreactive)
[2025-05-05 08:31] LABS: Syphilis Screen Nonreactive (Nonreactive)
== END 2025-05-04 13:31 | disposition home or self-care (01) ==
LOC: HO.LAB 13:30
PROVIDERS: PCP Internal Medicine; Visit Provider Obstetrics & Gynecology
DX: Z01.419 Encounter for gynecological examination (general) (routine) without abnormal findings (principal); N76.0 Acute vaginitis; B96.89 Other specified bacterial agents as the cause of diseases classified elsewhere
CPT/HCPCS: 36415; 86780; 86803; 87340; 87389; 99395

== ENCOUNTER 2025-05-04 15:06 | Outpatient (REF) | payer OTHER, SELFPAY ==
[2025-05-04 21:13] LABS: Bacterial Vaginosis PCR NEGATIVE (Negative); Candida Group PCR NOT DETECTED (Not Detect); Candida glab krusei PCR NOT DETECTED (Not Detect); Trichomonas vaginalis PCR NOT DETECTED (Not Detect)
[2025-05-04 21:53] LABS: CT PCR NOT DETECTED (Not Detect.); NG PCR NOT DETECTED (Not Detect.)
== END 2025-05-04 15:07 | disposition home or self-care (01) ==
LOC: HO.LNP 15:06
PROVIDERS: Visit Provider Obstetrics & Gynecology
DX: Z11.3 Encounter for screening for infections with a predominantly sexual mode of transmission (principal)
CPT/HCPCS: 81515; 87491; 87591

== ENCOUNTER 2025-08-05 13:22 | Outpatient (AMB) | payer OTHER, SELFPAY ==
[2025-08-05 13:25] VITALS: BP 100/66; PULSE 88; RESP 18; TEMP 36.4; O2SAT 98; BMI 23.6
--- NOTE | 2025-08-05 13:25 | MHC.PC.OV ---
Vital Signs 08/05/25 13:25 Height 5 ft 4 in Weight 137 lb 4 oz BMI 23.6 BP 100/66 Blood Pressure Location Lt brachial Position Sitting Respiration 18 Pulse 88 Pulse Source Pulse Oximeter Temp 97.5 F Temp Source Temporal Artery Scan Pulse Oximetry (%) 98 Oxygen Delivery Method Room Air Intake Visit Reasons: annual exam Maitre D Required: No Accompanied by: Self / Same As Patient Allergies No Known Allergies Allergy (Verified 08/05/25 13:33) Medication List - Last Reconciled 08/05/25 by Laquita Olea MD levonorgestrel (Mirena) intrauterine Tobacco use date assessed: 08/05/25 Dental Screening Dental Screen Date: 08/05/25 Did you have a dental visit in the last 12 months?: Yes Did you have a dental problem in the last 6 months where you did not have access to dental care?: No Was dental information given to patient?: Patient has dentist HPI HPI Comments History of Present Illness Details The patient is a 25-year-old female presenting for a physical examination and preventative care. She has a history of depression and anxiety, which she manages without medication or counseling at this time. She reports being able to cope with these conditions on her own. Her preventative care is up to date with a Pap smear performed in 2022, which was negative. She received a Tdap vaccine in 2016, with the next dose due in 2026. She has not yet received the influenza vaccine for this year and is advised to obtain it from a pharmacy. The COVID-19 vaccine is now recommended annually, and she can receive it at a pharmacy as well. Her surgical history includes rhinoplasty and tonsillectomy. She has also undergone abdominoplasty. Family history reveals that her father has gout, while her mother has no significant medical issues. Social history indicates that she previously smoked but has since quit. She used to consume alcohol occasionally but has stopped drinking entirely. [facility] Medical History (Updated 08/05/25 @ 13:46 by Laquita Olea MD) Leukocytoclastic vasculitis FRED (generalized anxiety disorder) Minimal recurrent major depressive disorder Family history of hypertension Skin lesion of breast Acute allergic rhinitis Obese Surgical History (Updated 08/05/25 @ 13:39 by Laquita Olea MD) History of cholecystectomy H/O abdominoplasty H/O breast augmentation H/O gastric sleeve H/O rhinoplasty History of tonsillectomy Family History Father Gout Mother No problems noted. Social History (Updated 08/05/25 @ 13:38 by Laquita Olea MD) Housing: Apartment Alcohol intake: former Patient Tobacco Use Status: Former Tobacco user Tobacco use type: Cigarette e-Cigarette/Vaping Use: Never Used Second Hand Smoke Exposure: No service: No Current occupational status: employed Current occupation: [employer] Sexual orientation: Straight/Heterosexual Gender identity: Female Cognitive needs: No Hearing needs: No Vision needs: No Female Reproductive History Menstrual Age of Menarche: 13 Questionnaire PHQ-9 Over the last 2 weeks, how often have you been bothered by any of the following problems? 1. Little interest or pleasure in doing things: not at all 2. Feeling down, depressed, or hopeless: several days 3. Trouble falling or staying asleep, or sleeping too much: several days 4. Feeling tired or having little energy: more than half the days 5. Poor appetite or overeating: several days 6. Feeling bad about yourself - or that you are a failure or have let yourself or your family down: several days 7. Trouble concentrating on things, such as reading the newspaper or watching television: several days 8. Moving or speaking so slowly that other people could have noticed. Or the opposite - being so fidgety or restless that you have been moving around a lot more than usual: not at all 9. Thoughts that you would be better off or of hurting yourself in some way: not at all Total score: 7 Depression Screening Interpretation: Positive Depression Screening Follow-up: Existing condition, Follow-up Visit Requested and Declines treatment Depression Screening Done: Yes 13137 - PHQ-9 Billing: Yes Source: Developed by Drs. Yohan Myers, Marilyn Turcios, Sotero Smith and colleagues, with an educational nataly from [employer]. Thrive Questionnaire Date Thrive assessed: 08/03/25 I am a: Patient What is your living situation today?: I have a steady place to live Within the past 12 months, did the food you bought not last and you didn't have the money to get more?: I choose not to answer this question Within the past 12 months, did you worry whether your food would run out before you got money to buy more?: I choose not to answer this question Do you have trouble paying for medicines?: I choose not to answer this question Do you have trouble getting transportation to medical appointments?: No Do you have trouble paying your heating and electricity bill?: No Do you have trouble taking care of your child, family member or friend?: No Do you have trouble with day-to-day activities such as bathing, preparing meals, shopping, managing finances, etc.?: No Are you currently unemployed and looking for a job?: No Are you interested in more education?: Yes Please select the resources that you would like help with: None Currently or been in a relationship where the following occur: No concerns reported THRIVE Score: 0 AUDIT C Alcohol Use Questionnaire (AUDIT-C) 1. How often do you have a drink containing alcohol?: Never 3. How often do you have six or more drinks on one occasion?: Never Total Score: 0 Score Reviewed/Action Taken: No FRED-7 AMB Questionnaire FRED-7 Date FRED - 7 assessed: 05/10/24 Feeling nervous, anxious, or on edge: 1 = Several days Not being able to stop or control worryin = Several days Worrying too much about different things: 1 = Several days Trouble relaxin = Several days Being so restless that it is hard to sit still: 0 = Not at all Becoming easily annoyed or irritable: 0 = Not at all Feeling afraid as if something awful might happen: 0 = Not at all Total FRED-7 score (0-4 normal; 5-9 mild; 10-14 moderate; 15-21 severe): 4 Source: Developed by Drs. Yohan Myers, Marilyn Turcios, Sotero Smith and colleagues, with an educational nataly from [employer]. FRED-7 Assessment Billing FRED-7 Assessment Tool: FRED-7 Assessment 46874 Review of Systems Const All systems reviewed & are unremarkable except as noted in HPI and below Card Denies chest pain at rest, Denies chest pain with activity, Denies edema, Denies irregular heart rhythm, Denies claudication, Denies dyspnea, Denies dyspnea on exertion, Denies orthopnea, Denies paroxysmal nocturnal dyspnea and Denies slow heart rate Resp Denies cough, Denies dyspnea and Denies dyspnea on exertion Physical exam (Primary Care) Vital Signs: Last Vital Signs Temp 97.5 F 08/05/25 13:25 Pulse 88 08/05/25 13:25 Resp 18 08/05/25 13:25 BP 100/66 08/05/25 13:25 Pulse Ox 98 08/05/25 13:25 Oxygen Delivery Method Room Air 08/05/25 13:25 BMI result Body Mass Index 23.6 Tobacco/Smoking Status: Tobacco use Status Tobacco use date assessed 08/05/25 08/05/25 13:31 Patient Tobacco Use Status Former Tobacco user 08/05/25 13:31 Tobacco use type Cigarette 08/05/25 13:31 e-Cigarette/Vaping Use Never Used 08/05/25 13:31 PHQ-9: PHQ-9 Score PHQ-9: Total score 7 08/05/25 13:31 Depression Screening Interpretation: Positive Depression Screening Follow-up: Existing condition, Follow-up Visit Requested and Declines treatment Thrive Assessment: Date of Thrive Assessment Date Thrive assessed 08/03/25 08/05/25 13:31 Currently or been in a relationship where the following occur: No concerns reported HENMT Head: Yes normal to inspection, Yes normocephalic and Yes atraumatic Ears: external ears normal Eyes General: appearance normal, both eyes and all related structures Eyelids: Yes eyelids normal Conjunctivae: conjunctivae normal Neck Neck: Yes normal visual inspection and Yes supple Resp Effort & Inspection: normal respiratory effort Auscultation: clear to auscultation bilaterally Cardio Jugular venous distension: no JVD Rate: regular rate Rhythm: regular rhythm Heart sounds: S1 normal heart sound present and S2 normal heart sound present GI Inspection: Yes normal to inspection Palpation (GI): Soft to palpation and nontender Auscultation: normal bowel sounds Skin General skin exam: no rashes or lesions noted Neuro General: no focal motor deficits Extrem General: Yes full ROM Psych Appearance: grossly normal Coding Level of Care Code Est Pt Level 3 (09040) Est Pt Prev Care 18-39y(24325) Diagnoses Physical exam Z00.00 Blurry vision H53.8 Additional Codes PHQ-9 - 03077 - PHQ-9 Billing: Yes ([id number]) FRED-7 Assessment Billing - FRED-7 Assessment Tool: FRED-7 Assessment 44472 ([id number]) Time Spent (min) 31 Assessment & Plan Assessment & Plan (1) Physical exam: Code(s): Z00.00 - Encounter for general adult medical examination without abnormal findings Category: Medical (2) Blurry vision: Code(s): H53.8 - Other visual disturbances Category: Medical Plan Plan Patient was informed and verbally consented to the use of an ambient scribe for clinic note documentation during this visit. 1. Depression The patient reports experiencing depression but is currently managing without medication or counseling. She feels capable of coping with the condition independently at this time. 2. Anxiety The patient reports experiencing anxiety but is currently managing without medication or counseling. She feels capable of coping with the condition independently at this time. 3. Preventative Care: Pap Smear The Pap smear conducted in 2022 was negative, indicating no current cervical abnormalities. 4. Preventative Care: Tdap Vaccination The patient received a Tdap vaccination in 2016, with the next dose scheduled for 2026. 5. Preventative Care: Influenza Vaccination The patient is advised to receive the influenza vaccination for the current year at a pharmacy. 6. Preventative Care: Covid-19 Vaccination The patient is advised to receive the COVID-19 vaccination annually, which can be administered at a pharmacy. Orders: Orders Complete Blood Count Auto Diff Today D64.9 - Anemia, unspecified IRON PROFILE Today D64.9 - Anemia, unspecified Lipid Panel Today E78.5 - Hyperlipidemia, unspecified Comprehensive [place]. Panel Fast Today Z00.00 - Encounter for general adult medical examination without abnormal findings Referrals Ophthalmology Referral H53.8 - Other visual disturbances
--- OUTSIDE RECORDS SUMMARY | 2025-08-05 14:43 | XMS_ITS | Encounter Summary ---
Author Organization [facility] Address [address] [place] [phone] Phone Care Team Providers Care Head Cager Name Role Phone Laquita Leonardo MD Primary Care Provid er Encounter Details Date Type Department Care Team (Late st Contact Info) Description 01/31/2023 Procedure Pass [facility], Ct Scan [address] [address] Social History Tobacco Use Types Packs/Day Years Used Date Smoking Tobacco: Never Assessed Comments Unknown Sex and Gender Information Value Date Recorded Sex Assigned at Female 01/31/2023 5:48 PM EDT Legal Sex Female 4:05 PM EST Gender Identity Female 01/31/2023 5:48 PM EDT Sexual Orientation Straight 01/31/2023 5: 48 PM EDT documented as of this encounter Functional Status * Calculated C-SSRS Risk Score (Lifetime/Recent) Answer Date of Assessment Author No Risk Indicated 01/31/2023 5:48 PM EDT Zoe Uribe, LILIA * [place] Suicide Severity Rating Scale (Screener/Recent Self-Report) Question Answer Date of Assessment Author 1. Wish to be (Past 1 Month) No 023 5:48 PM EDT Zoe Uribe, RN 2. Non-Specific Active Suici kelvin Thoughts (Past 1 Month) No 01/31/2023 5:48 PM EDT Zoe Uribe , RN 6. Suicidal Behavior (Lifetime) No 5:48 PM EDT Zoe Uribe, RN documented as of this encounter Plan of Treatment Not on file documented as of this encounter Visit Diagnoses Not on filedocumented in this encounter Care Teams Head Cager Relationship Specialty Start Date End Date Laquita Leonardo MD [address] [place] [address] PCP - General Internal Medicine 01/17/23 documented as of this encounter Additional Source Comments The information contained in this document represents components of the legal health record. It is not the complete legal health record.[facility]
--- OUTSIDE RECORDS SUMMARY | 2025-08-05 14:43 | XMS_ITS | Clinical Summary ---
Author Organization [facility] Address [address] [place] [phone] Phone Care Team Providers Care Cartridge Filler Name Role Phone Laquita Leonardo MD Primary Care Provid er Allergies No known active allergies Medications No known medications Social History Tobacco Use Types Packs/Day Years Used Date Smoking Tobacco: Never Passive Smoke Exposure: Never Smokeless Tobacco: Never Tobacco Cessation:Counseling Given: Not Answered Alcohol Use Standard Drinks/Week Comments Not Currently 0 (1 standard drink = 0.6 oz pur e alcohol) Education Answer Date Recorded Are you interested in more education? Not on panfilo e 03/06/2023 Are you concerned about learning? Not on file 03/06/2023 No 03/06/2023 No 03/06/2023 Digital Access Answer Date Recorded No 04/08/2023 No 04/08/2023 Reliable internet access at home? Not on file 04/08/2023 Device with a working camera? Not on file Intimate Partner Violence Answer Date R ecorded Are you denied basic needs s uch as food, clothing, or medical care? No 02/14/2024 In the past 12 months have y ou been in a relationship with a person who hurts, threatens, or tries to control you? No 02/14/2024 Are you denied basic needs s uch as food, clothing, or medical care? No 02/14/2024 In the past 12 months have y ou been in a relationship with a person who hurts, threatens, or tries to control you? No 02/14/2024 Comments Unknown Sex and Gender Information Value Date Recorded Sex Assigned at Female 01/31/2023 5:48 PM EDT Legal Sex Female 4:05 PM EST Gender Identity Female 01/31/2023 5:48 PM EDT Sexual Orientation Straight 01/31/2023 5: 48 PM EDT Last Filed Vital Signs Vital Sign Reading Time Taken Comments Blood Pressure 113/74 02/14/2024 4:10 AM EDT Pulse 90 02/14/2024 4:10 AM EDT Temperature 37.1 C (98.8 F) 02/14/2024 4:10 AM EDT Respiratory Rate 18 02/14/2024 4:10 AM EDT Oxygen Saturation 99% 02/14/2024 4:10 AM EDT Inhaled Oxygen Concentration - - Weight 72.6 kg (160 lb) 01/17/2023 4:18 PM EST Height 167.6 cm (5' 6 ) 01/17/2023 4:18 PM EST Body Mass Index 25.82 01/17/2023 4:18 PM EST Plan of Treatment Health Maintenance Due Date Last Done Comments Adult Td,Tdap Booster 2002 DEPRESSION SCREENING 2014 SMOKING Hx and SMOKELESS TOB ACCO SCREENING 2015 HPV VACCINES (1 - 3-dose series) 2017 MENINGOCOCCAL VACCINES (B) ( 1 of 2 - Standard) 2018 HEPATITIS C SCREENING 2020 HIV ONE-TIME SCREENING (18-6 5 YEARS) 2020 PAP SMEAR 2023 CHLAMYDIA SCREENING 02/13/2025 02/14/2024 INFLUENZA VACCINE (#1) 2025 COVID-19 VACCINE ( - 2023-2 5 season) 2025 HEPATITIS A VACCINES Aged Out No long er eligible based on patient's age to complete this topic HIB VACCINES Aged Out No longer eligi ble based on patient's age to complete this topic MENINGOCOCCAL VACCINES (ACWY) Aged Out No longer eligible based on patient's age to complete this topic PNEUMOCOCCAL VACCINES (0-49 years) Aged Out No longer eligible based on patient's age to complete this topic Medical Devices Not on file Procedures Procedure Name Priority Date/Time Associated Diagnosis Comments CHLAMYDIA TRACHOMATIS AND NEISSERIA GONORRHOEAE NUCLEIC ACID DETECTION STAT 02/14/2024 3:15 AM EDT from Last 3 Months or Most Recently Relevant to Health Maintenance Results * Chlamydia Trachomatis and Neisseria Gonorrhoeae Nucleic Acid Detection (02/14/2024 3:15 AM EDT) CHLAMYDIA TRACHOMATIS Not Detected Not Detected [facility] NEISERIA GONORRHOEAE Not Detected Not Detected [facility] SPECIMEN TYPE VAGINAL [facility] Other (Vaginal) 02/14/2024 3 :15 AM EDT 02/14/2024 3:21 AM EDT us Gauri Lyon PA-C NON CULTURE MICROBIOLOGY Fi nal Result [facility] [address] [place] [address] from Last 3 Months or Most Recently Relevant to Health Maintenance Insurance [facility] [place] [employer] [facility] [place] [employer] [facility] [place] [employer] [facility] [place] [employer] [facility] Care Teams Cartridge Filler Relationship Specialty Start Date End Date Laquita Leonardo MD [address] [place] [address] PCP - General Internal Medicine 01/17/23 Additional Source Comments The information contained in this document represents components of the legal health record. It is not the complete legal health record.[facility]
== END 2025-08-05 13:47 | disposition home or self-care (01) ==
LOC: HO.HMCH 13:23
PROVIDERS: PCP Internal Medicine; Visit Provider Internal Medicine
DX: Z00.00 Encounter for general adult medical examination without abnormal findings (principal); H53.8 Other visual disturbances

== ENCOUNTER → 2025-08-05 13:22 | Outpatient (BNVA) | payer OTHER, SELFPAY | PROVIDERS: PCP Internal Medicine; Visit Provider Internal Medicine | DX: Z00.00 Encounter for general adult medical examination without abnormal findings (principal); F41.9 Anxiety disorder, unspecified; F32.A Depression, unspecified; H53.8 Other visual disturbances; D64.9 Anemia, unspecified; E78.5 Hyperlipidemia, unspecified; Z87.891 Personal history of nicotine dependence | CPT/HCPCS: 96127; 99395 ==

== ENCOUNTER 2025-09-15 08:24 | Outpatient (REF) | payer OTHER, SELFPAY ==
[2025-09-15 08:32] LABS: MANUAL DIFF FLAG NO
--- OUTSIDE RECORDS SUMMARY | 2025-09-15 08:47 | XMS_ITS | Clinical Summary ---
Author Organization [employer] Address [address] [place] [address] [address] [place] [address] Care Team Providers Care Orchard Manager Name Role Phone Unavailable Primary Care Provider [...] COVID-19 Vaccine ( - 2023-2 5 season) 2025 Influenza Vaccine (#1) 2025 Zoster Vaccines (1 of 2) 2052 [...]
--- OUTSIDE RECORDS SUMMARY | 2025-09-15 08:47 | XMS_ITS | Encounter Summary ---
Author Organization [facility] Address [address] [facility] [address] [place] [phone] Phone Care Team Providers Care Freight Car Cleaner [employer] Name Role Phone Laquita Leonardo MD Primary Care Provid er Encounter Details Date Type Department Care Team (Late st Contact Info) Description 01/31/2023 Procedure Pass [facility], Ct Scan [address] [address] Social History Tobacco Use Types Packs/Day Years [...] 5:48 PM EDT Zoe Uribe, LILIA * [place] Suicide Severity Rating Scale (Screener/Recent Self-Report) Question Answer Date of Assessment Author 1. Wish to be (Past 1 Month) No 023 5:48 PM EDT Zoe Uribe, RN 2. Non-Specific Active Suici kelvin Thoughts (Past 1 Month) No 01/31/2023 5:48 PM EDT Zoe Uirbe , RN 6. Suicidal Behavior (Lifetime) No 5:48 PM EDT Zoe Uribe, RN documented as of this encounter Plan of Treatment Not on file documented as of this encounter Visit Diagnoses Not on filedocumented in this encounter Care Teams Freight Car Cleaner [employer] Relationship Specialty Start Date End Date Laquita Leonardo MD [address] [place] [address] PCP - General Internal Medicine 01/17/23 documented as of this encounter Additional Source Comments The information contained in this document represents components of the legal health record. It is not the complete legal health record.[facility]
--- OUTSIDE RECORDS SUMMARY | 2025-09-15 08:47 | XMS_ITS | Clinical Summary ---
Author Organization [facility] Address [address] [place] [phone] Phone Care Team Providers Care Director Nurses' Registry Name Role Phone Laquita Leonardo MD Primary [...] VACCINE (#1) 2025 COVID-19 VACCINE ( - 2024-2 6 season) 2025 HEPATITIS A VACCINES Aged Out [...] EDT) CHLAMYDIA TRACHOMATIS Not Detected Not Detected [facility] NEISERIA GONORRHOEAE Not Detected Not Detected [facility] SPECIMEN TYPE VAGINAL [facility] Other (Vaginal) 02/14/2024 3 :15 AM EDT 02/14/2024 3:21 AM EDT us Gauri Lyon PA-C LAB GENERAL ORDERABLES Ursula garg Result [facility] [address] [place] [address] from Last 3 Months or Most Recently Relevant to Health Maintenance Insurance [facility] [place] [employer] [facility] [place] [employer] [facility] [employer] [facility] [employer] [facility] Care Teams Director Nurses' Registry Relationship Specialty Start Date End Date Laquita Leonardo MD [address] [place] [address] PCP - General Internal Medicine 01/17/23 Additional Source Comments The information contained in this document represents components of the legal health record. It is not the complete legal health record.[facility]
--- OUTSIDE RECORDS SUMMARY | 2025-09-15 08:47 | XMS_ITS | Encounter Summary ---
Author Organization [employer] Address [address] [place] [address] [address] [place] [address] Care Team Providers Care Inspector Brake Lining Name Role Phone Unavailable Primary Care Provider Unavailabl e Encounter Details Date Type Department Care Team (Latest Contact Info) Description 07/03/2021 Abstract [facility] CONVERSIONS Dental, Provider, DDS Social History Tobacco Use Types Packs/Day Years Used Date Smoking Tobacco: Never Assessed Comments Unknown Sex and Gender Information Value Date Recorded Sex Assigned at Female 09/09/2022 10:37 AM EDT Legal Sex Female 10:37 AM EDT Gender Identity Choose not to disclose 10:37 AM EDT Sexual Orientation Choose not to disclose 2021 10:37 AM EDT documented as of this encounter Plan of Treatment Not on file documented as of this encounter Visit Diagnoses Not on filedocumented in this encounter
[2025-09-15 09:00] LABS: Hematocrit 37.9 % (37.0-47.0); Hemoglobin 11.5 g/dl (12.0-16.0); Imm Gran Abs Auto 0.01 X10*3/uL (0.00-0.03); Imm Gran Pct Auto 0.1 % (0.0-0.4); Lymphocytes Absolute Auto 3.4 X10*3/uL (1.2-4.9); Mean Corpuscular HGB Conc 30.3 g/dl (31.0-35.0); Mean Corpuscular Hemoglobin 23.0 pg (27.0-33.0); Mean Corpuscular Volume 76.0 fL (80.0-98.0); NRBC Abs Auto 0.000 X10*3/uL (0.0-0.012); NRBC Pct Auto 0.0 /100WBC (0.0-0.2); Platelet Count 292 X10*3/uL (160-400); Red Blood Count 4.99 X10*6/uL (4.20-5.50); White Blood Count 7.3 X10*3/uL (4.8-10.8)
[2025-09-15 09:38] LABS: Alanine Aminotransferase 15 U/L (0-31); Albumin Level 4.6 g/dL (3.5-5.0); Alkaline Phosphatase 82 U/L (39-117); Anion Gap 11 (12-20); Aspartate Amino Transferase 19 U/L (5-31); Blood Urea Nitrogen 14 mg/dL (9-16); Calcium 9.4 mg/dL (8.4-10.2); Carbon Dioxide 28 mmol/L (22-29); Chloride 108 mmol/L (96-108); Cholesterol 157 mg/dL (<200); Estimated Glomerular Filt Rate > 60; HDL Cholesterol 67 mg/dL (>40); Iron 45 mcg/dL (30-160); Percent Iron Saturation 11 % (15-50); Potassium 3.8 mmol/L (3.3-5.1); Sodium 143 mmol/L (135-145); Total Iron Binding Capacity 411 mcg/dL (228-428); Total Protein 7.9 g/dL (6.5-8.0); Triglycerides 46 mg/dL (<150); Unsaturated Iron Binding 366 ug/dL
== END 2025-09-15 08:25 | disposition home or self-care (01) ==
LOC: HO.LAB 08:24
PROVIDERS: PCP Internal Medicine; Visit Provider Internal Medicine
DX: Z00.00 Encounter for general adult medical examination without abnormal findings (principal); E78.5 Hyperlipidemia, unspecified; D64.9 Anemia, unspecified
CPT/HCPCS: 36415; 80053; 80061; 83540; 85025